=== PATIENT | female | born 1975 | race Caucasian/White ===

== ENCOUNTER 2019-01-26 09:38 | Day surgery (SDC) | payer OTHER ==
[2019-01-26] MEDS ORDERED: oxyCODONE 5 MG TAB PO NR (10:56)
[2019-01-26] MEDS ORDERED: SODIUM CHLORIDE 0.9% 1000 ML 1,000 ML IV SCH (11:00)
--- NOTE | 2019-01-26 11:55 | Anesthesia Day of Surgery ---
Anesthesia Day of Surgery - Day of Surgery Patient Examined: Yes Patient H&P Reviewed: Yes Patient is NPO: Yes
--- NOTE | 2019-01-26 11:57 | Anesthesia Consultation ---
Anesthesia Consult and Med Hx Date of service: 01/26/19 - Airway Anesthetic Teeth Evaluation: Good ROM Head & Neck: Adequate Mental/Hyoid Distance: Adequate Mallampati Class: Class I Intubation Access Assessment: Good - Pre-Operative Health Status ASA Pre-Surgery Classification: ASA2 Proposed Anesthetic Plan: MAC - Pulmonary Hx Smoking: No (QUIT) - Central Nervous System Hx Back Pain: Yes (Duragesic patch and oxycodone) Hx Psychiatric Problems: Yes (ANX/DEPR) - Gastrointestinal Hx Ulcer: Yes
[2019-01-26] MEDS ORDERED: PROPOFOL 200 MG/20 ML VIAL IV ONE ×3 (12:56)
[2019-01-26] MEDS ORDERED: fentaNYL 100 MCG/2 ML INJ ONE (12:58)
[2019-01-26] MEDS ORDERED: ONDANSETRON 4 MG/2 ML INJ ONE ×2 (12:59→13:00)
[2019-01-26] MEDS ORDERED: LIDOCAINE MPF (2%) 20 MG/1 ML VIAL 5 ML ONE (13:00)
[2019-01-26] MEDS ORDERED: WATER FOR IRRIG STERILE 250 ML BOTTLE IR ONE (13:01)
--- NOTE | 2019-01-26 13:45 | Procedure Note ---
Date of procedure: 01/26/19 Pre-op diagnosis: Dyspepsia/ Altered Bowel habits Post-op diagnosis: other (Mid-Esophageal Ulcer (possible Pill Esophagitis)/Gastritis/Duodenal Erosion/R/O Celiac disease/R/O Microscopic Colitis/R/O Ileitis/Minor,Internal Hemorrhoid) Procedure: EGD with Biopsy and Colonoscopy and Biopsy [place] [facility] [place]: RONNA ISALS Estimated blood loss: minimal Pathology: list Specimen disposition: to lab Condition: stable Disposition: same day (Treat with and Linzes (samples already given to the patient). Avoid aspirin and NSAID for 4 days and follow up in 1 to 2 weeks ([phone]).)
--- NOTE | 2019-01-26 13:47 | Operative Report ---
PROCEDURE: EGD with biopsy. INDICATIONS: The patient is a 43-year-old female who has a history of arthritis and does take analgesics with codeine. Lately, she has been having some dyspeptic symptoms. An EGD was done to assess for the problem. PROCEDURE: The procedure was done after getting informed consent with MAC anesthesia. Instrument was passed through the hypopharynx into the esophagus, which showed a mid esophageal ulcer, which may have been a pill esophagitis. Photodocumentation and biopsy was obtained. The stomach showed antral gastritis. Biopsy was done from the gastric body, gastric antrum, and angular incisura to rule out for H. pylori and atrophic gastritis. The pylorus was patent. The duodenum in the bulb showed duodenal erosion. Biopsy was done from the second part to rule out for possible celiac disease. There was minimal bleeding associated with the biopsies and no complications associated with the procedure. ASSESSMENT: Dyspepsia, mild esophageal ulcer, possibly pill esophagitis, gastritis, duodenal erosion, rule out celiac disease. PLAN: Plan is to treat the patient with PPI. Encouraged the patient to use codeine analgesics in a limited fashion and to do a colonoscopy for further assessment since the patient also gives a history of altered bowel habits. The patient will be asked to follow up in the office in 1-2 weeks' time and to avoid aspirin and aspirin-related products for the next few days. The procedure was done in the GI lab with assistance of the GI lab team, which included RN, Yaa De Santiago as well as Elliot goss and with the assistance of Anesthesia. JOB# [id number] MARTHA/JOSEP
--- NOTE | 2019-01-26 13:50 | Operative Report ---
PROCEDURE: Colonoscopy. INDICATIONS: A 43-year-old female who has a history of arthritis and takes analgesics including codeine medication. She has some altered bowel habits. Colonoscopy was done to make sure there was not any associated colitis present. EGD was done prior to the colonoscopy, which showed a mid esophageal ulcer as well as gastritis and duodenal erosion. DESCRIPTION OF PROCEDURE: Colonoscopy was done after getting informed consent with MAC anesthesia. Initial rectal exam was unremarkable. Instrument was passed through the rectum onto the cecum, which was identified with ileocecal valve and appendiceal orifice. Visualization was fair to good. The cecum was also visualized in the retroverted view. No additional pathology was noted. The terminal ileum was intubated, showed normal terminal ileal mucosa. Biopsy was done to rule out for possible ileitis. Cecum, ascending colon, transverse colon, descending colon, and sigmoid likewise showed normal mucosa. Biopsies were done to rule out for possible microscopic colitis and the rectum showed minor internal hemorrhoid on the retroverted view. There was no diverticular disease noted. There were no colon polyps noted. There was minimal bleeding from the biopsy sites and no complications associated with the procedure. ASSESSMENT: Altered bowel habits, rule out microscopic colitis, rule out ileitis, minor internal hemorrhoid. PLAN: To encourage the patient to use the codeine, analgesics in a limited fashion, treat the patient with Linzess. She has been given some samples. Avoid aspirin and aspirin-related products for the next few days. Await for the biopsy results and I have the patient follow up in the office in 1-2 weeks' time. Procedure was done in the GI lab with assistance of the GI lab team, which included RN, Yaa De Santiago, and Elliot donovan, and with assistance of anesthesia. JOB# [id number] MARTHA/JOSEP
[2019-01-26 14:27] VITALS: BP 96/48
--- NOTE | 2019-01-26 23:10 | Post Anesthesia Evaluation ---
- Post Anesthesia Evaluation Patient Participated: Yes Airway Patent: Yes Stable Respiratory Function: Yes Nausea/Vomiting: No Temp > 96.8F: Yes Pain Manageable: Yes Adequeate Hydration: Yes Anesthesia Complications: No Block Receding Appropriately: Not Applicable Patient on Ventilator: No
== END 2019-01-26 09:39 | disposition home or self-care (01) ==
LOC: GIO 09:38
DX: R19.4 Change in bowel habit (principal); K52.9 Noninfective gastroenteritis and colitis, unspecified; R10.13 Epigastric pain; M19.90 Unspecified osteoarthritis, unspecified site; F41.9 Anxiety disorder, unspecified; F32.9 Major depressive disorder, single episode, unspecified; K29.50 Unspecified chronic gastritis without bleeding; K63.89 Other specified diseases of intestine; Z87.891 Personal history of nicotine dependence; Z79.01 Long term (current) use of anticoagulants; Z79.899 Other long term (current) drug therapy; Z88.1 Allergy status to other antibiotic agents; Z88.2 Allergy status to sulfonamides; Z88.8 Allergy status to other drugs, medicaments and biological substances; Z90.710 Acquired absence of both cervix and uterus; Z98.890 Other specified postprocedural states
CPT/HCPCS: 43239; 45380; 88305; 88342; J2405; J2704; J3010; J7030

== ENCOUNTER 2019-03-20 22:21 | Emergency (ER) | payer OTHER ==
[2019-03-20] MEDS ORDERED: SODIUM CHLORIDE 0.9% 1000 ML 1,000 ML IV ONE (23:03)
--- NOTE | 2019-03-20 23:08 | Emergency Department Report ---
ED General Adult HPI - General Chief complaint: Medical Clearance Stated complaint: RESTLESS/DETOX Time Seen by Provider: 03/20/19 22:57 Source: patient Mode of arrival: Ambulatory Limitations: No Limitations - History of Present Illness Initial comments: Patient is 43 years old female with history of Opiates abuse. Patient brought to the emergency room from [facility] for twitching and restless leg for the last 3 days. Patient stated that she was admitted 2 weeks ago. Patient denied any fever or chills. Patient is currently taking gabapentin, Cymbalta and Ativan. Patient denied any suicidal or homicidal ideation. No visual or auditory hallucination. - Related Data Home Medications Medication Instructions Recorded Confirmed Last Taken Fentanyl 75 mcg TRANSDERMA Q3D 01/26/19 01/26/19 01/24/19 oxyCODONE 15 mg PO Q4H 01/26/19 01/26/19 01/26/19 Previous Rx's Medication Instructions Recorded Last Taken Type Pantoprazole [Protonix] 40 mg PO QDAY 30 Days #30 tablet 01/26/19 Unknown Rx Allergies Allergy/AdvReac Type Severity Reaction Status Date / Time ciprofloxacin [From Cipro] Allergy Intermediate Unknown Verified 01/26/19 11:03 sulfamethoxazole Allergy Intermediate Unknown Verified 01/26/19 11:03 [From Bactrim] trimethoprim [From Bactrim] Allergy Intermediate Unknown Verified 01/26/19 11:03 ED Review of Systems ROS: Stated complaint: RESTLESS/DETOX Other details as noted in HPI Comment: All other systems reviewed and negative Constitutional: denies: chills, fever Respiratory: denies: cough, shortness of breath Cardiovascular: denies: chest pain, palpitations Gastrointestinal: denies: abdominal pain, nausea, vomiting Musculoskeletal: denies: back pain Neurological: denies: headache, weakness ED Past Medical Hx - Past Medical History Hx Headaches / Migraines: Yes Additional medical history: back pain, RLS - Surgical History Hx Breast Surgery: Yes Additional Surgical History: left foot surgery, tubal ligation - Social History Smoking Status: Former Smoker - Medications Home Medications: Home Medications Medication Instructions Recorded Confirmed Last Taken Type Fentanyl 75 mcg TRANSDERMA Q3D 01/26/19 01/26/19 01/24/19 History Pantoprazole [Protonix] 40 mg PO QDAY 30 Days #30 tablet 01/26/19 Unknown Rx oxyCODONE 15 mg PO Q4H 01/26/19 01/26/19 01/26/19 History ED Physical Exam - General Limitations: No Limitations General appearance: alert, in no apparent distress, anxious - Head Head exam: Present: atraumatic, normocephalic, normal inspection - Eye Eye exam: Present: normal appearance - ENT ENT exam: Present: normal orophraynx - Neck Neck exam: Present: normal inspection. Absent: tenderness, meningismus - Respiratory Respiratory exam: Present: normal lung sounds bilaterally - Cardiovascular Cardiovascular Exam: Present: regular rate, tachycardia - GI/Abdominal GI/Abdominal exam: Present: soft, normal bowel sounds. Absent: distended, tenderness, guarding, rebound, rigid, organomegaly, mass, bruit, pulsatile mass, hernia - Extremities Exam Extremities exam: Present: normal inspection, full ROM, normal capillary refill - Back Exam Back exam: Present: normal inspection, full ROM. Absent: CVA tenderness (R), CVA tenderness (L) - Neurological Exam Neurological exam: Present: alert, oriented X3, CN II-XII intact, normal gait - Psychiatric Psychiatric exam: Present: normal mood, anxious. Absent: flat affect, manic, homicidal ideation, suicidal ideation - Skin Skin exam: Present: warm, intact, normal color ED Course Vital Signs 03/20/19 03/21/19 03/21/19 22:35 00:10 01:05 Temperature 98.0 F 98.1 F Pulse Rate 113 H 95 H Respiratory 18 18 18 Rate Blood Pressure 93/58 Blood Pressure 127/93 [Right] O2 Sat by Pulse 97 98 Oximetry 03/21/19 01:35 Temperature Pulse Rate Respiratory 18 Rate Blood Pressure Blood Pressure [Right] O2 Sat by Pulse Oximetry ED Medical Decision Making - Lab Data Result diagrams: 03/20/19 23:07 03/20/19 23:07 - Medical Decision Making Patient is 43 years old female with history of Opiates abuse. Patient brought to the emergency room from [facility] for twitching and restless leg for the last 3 days. Patient stated that she was admitted 2 weeks ago. Patient denied any fever or chills. Patient is currently taking gabapentin, Cymbalta and Ativan. Patient denied any suicidal or homicidal ideation. No visual or auditory hallucination. Patient received Ativan and Tylenol. Patient labs reviewed and is unremarkable. Patient stated that she is feeling better. Patient discharged back to [facility] and advised to follow-up with her primary doctor within a period Critical care attestation.: If time is entered above; I have spent that time in minutes in the direct care of this critically ill patient, excluding procedure time. ED Disposition Clinical Impression: Jerking movements of extremities Disposition: [id number] PSY HOSP/PSY UNIT Is pt being admited?: No Condition: Stable Instructions: Restless Legs Syndrome (ED) Referrals: PRIMARY CARE, [Primary Care Provider] - 3-5 Days
[2019-03-20 23:29] LABS: Basophils % (Auto) 0.5 % (0.0-1.8); Eosinophils # (Auto) 0.2 K/mm3 (0.0-0.4); Eosinophils % (Auto) 2.1 % (0.0-4.3); Hematocrit 39.6 % (30.3-42.9); Hemoglobin 13.6 gm/dl (10.1-14.3); Lymphocytes # (Auto) 2.9 K/mm3 (1.2-5.4); Mean Corpuscular HGB Conc 34 % (30-34); Mean Corpuscular Volume 94 fl (79-97); Monocytes # (Auto) 0.7 K/mm3 (0.0-0.8); Platelet Count 237 K/mm3 (140-440); Red Blood Count 4.23 M/mm3 (3.65-5.03); Red Cell Distribution Width 12.7 % (13.2-15.2)
[2019-03-20 23:53] LABS: Alanine Aminotransferase 16 units/L (7-56); Albumin 4.5 g/dL (3.9-5); BUN/Creatinine Ratio 20; Blood Urea Nitrogen 12 mg/dL (7-17); Calcium 9.2 mg/dL (8.4-10.2); Hemolysis Index 7
[2019-03-21] MEDS ORDERED: LORazepam 2 MG/ML VIAL ONE (00:13)
[2019-03-21] MEDS ORDERED: LORazepam 2 MG/ML VIAL IV ONE (00:45)
[2019-03-21] MEDS ORDERED: KETOROLAC 30 MG/1 ML INJ IV ONE (01:05)
[2019-03-21] MEDS ORDERED: KETOROLAC 30 MG/1 ML INJ ONE (01:07)
[2019-03-21] MEDS ORDERED: ACETAMINOPHEN 325 MG TAB PO ONE (02:00)
[2019-03-21 02:17] LABS: Bilirubin,Urine NEG (Negative); Blood,Urine NEG (Negative); Color,Urine Yellow (Yellow); Hyaline Casts,Urine 2 /LPF; Mucus,Urine 3+ /HPF; Urobilinogen,Urine < 2.0 mg/dL (<2.0)
[2019-03-21] MEDS ORDERED: SODIUM CHLORIDE 0.9% 1000 ML 1,000 ML IV ONE ×2 (03:10→04:15)
[2019-03-21] MEDS ORDERED: SODIUM CHLORIDE 0.9% 1000 ML 1,000 ML ONE (03:10)
[2019-03-21 05:57] VITALS: BP 106/61
== END 2019-03-21 05:55 ==
LOC: ED 22:21
DX: R25.8 Other abnormal involuntary movements (principal); G43.909 Migraine, unspecified, not intractable, without status migrainosus; Z98.51 Tubal ligation status; Z98.890 Other specified postprocedural states; Z87.891 Personal history of nicotine dependence; Z79.899 Other long term (current) drug therapy; Z88.2 Allergy status to sulfonamides; Z88.8 Allergy status to other drugs, medicaments and biological substances
CPT/HCPCS: 36415; 80053; 81001; 83735; 85025; 96374; 96375; 99283; J1885; J2060; J7030